=== PATIENT | female | born 1940 | race Caucasian/White ===

== ENCOUNTER → 2017-01-31 | Outpatient (CLI) | payer MEDICARE, BC ==
[~2017-01-31] MED LIST: ALEVE 220MG220 MG PO; CELEBREX 200MG200 MG PO; NORVASC 5MG5 MG/TAB PO; PREMARIN 0.60.625 M1 PO; TYLENOL 325MG325 MG PO
== END ==
LOC: COL.RAD 13:00
DX: M51.16 Intervertebral disc disorders with radiculopathy, lumbar region (principal); N28.1 Cyst of kidney, acquired; I70.0 Atherosclerosis of aorta; G57.21 Lesion of femoral nerve, right lower limb

== ENCOUNTER 2017-03-22 12:23 | Outpatient (CLI) | payer MEDICARE, BC ==
[~2017-03-22] VITALS: Ht 152.4 cm; Wt 63.6 kg
[2017-03-22 12:36] VITALS: BP 159/94; PULSE 85
[2017-03-22 14:05] VITALS: BP 161/90; PULSE 86
[2017-03-22 14:10] VITALS: BP 161/90; PULSE 94
[2017-03-22 14:20] VITALS: BP 169/91; PULSE 88
[2017-03-22 14:35] VITALS: BP 165/93; PULSE 87
[2017-03-22 14:50] VITALS: BP 168/84; PULSE 82
== END 2017-03-22 15:20 | disposition home or self-care (01) ==
LOC: COL.RAD 12:23
DX: M48.05 Spinal stenosis, thoracolumbar region (principal)
CPT/HCPCS: Q9965